=== PATIENT | female | born 1970 | race Caucasian/White ===

== ENCOUNTER 2016-06-19 11:41 | Emergency (ER) | payer OTHER ==
[~2016-06-19 11:41] MED LIST: AVONEX IM; CATAFLAM50 MG PO; EQL FISH OIL 1,1 CA1 PO; MULTIVITAMIN1 TAB PO; PERCOCET 5/3251 TAB PO; TYSABRI300 MG/15 IV
[2016-06-19] MEDS ORDERED: PLEGRIDY125 MCG/0. SC (12:02)
[2016-06-19] MEDS ORDERED: VITAMIN D31000 UNI3 PO (12:02)
[2016-06-19 12:19] LABS: BASO % 0.3 % (0-2); EOS % 2.8 % (0-7); EOSINOPHIL ABSOLUTE COUNT 0.3 tho/cmm (0.0-0.7); HCT-HEMATOCRIT 39.2 % (34.0-49.0); HGB-HEMOGLOBIN 12.7 gm/dl (12.0-15.5); LYMPH % 19.6 % (20-45); LYMPH ABSOLUTE COUNT 1.8 tho/cmm (0.8-4.5); MCH (MEAN CORPUSCULAR HGB) 28.2 pg (28.0-32.0); MCHC MEAN CORPUSCULAR HGB CONC 32.4 % (32.0-36.0); MCV (MEAN CELL VOLUME) 87.1 fl (82.0-96.0); MEAN PLATELET VOLUME 9.5 cmc (9.4-12.4); MONO % 9.6 % (0-12); MONOCYTE ABSOLUTE COUNT 0.9 tho/cmm (0.0-1.2); NEUTROPHIL ABSOLUTE COUNT 6.3 tho/cmm (1.6-8.0); NEUTROPHIL-AUTOMATED 6.3 tho/cmm (1.6-8.0); NEUTROPHILS % 67.7 % (40-80); PLATELET COUNT 335 tho/cmm (150-450); RED CELL DISTRIBUTION WIDTH 13.8 % (12.4-16.4); WHITE BLOOD COUNT 9.2 tho/cmm (4.0-10.0)
[2016-06-19 12:38] LABS: PREGNANCY-SERUM NEGATIVE (NEGATIVE)
[2016-06-19 12:46] LABS: ALB/GLOB RATIO 0.9 (0.8-2.0); ALBUMIN 3.6 g/dl (3.5-5.0); ALKALINE PHOSPHATASE 65 U/L (33-138); ALT/SGPT 32 U/L (12-78); ANION GAP 14 mmol/L (0-20); AST/SGOT 17 U/L (10-40); BILIRUBIN,TOTAL 0.3 mg/dl (0-1.5); BLOOD UREA NITROGEN 18 mg/dl (6-24); CALCIUM 9.2 mg/dl (8.5-10.5); CARBON DIOXIDE-VENOUS 25 mmol/L (22-32); CHLORIDE 106 mmol/l (96-110); CREATININE 0.93 mg/dl (0.50-1.10); GLUCOSE 88 mg/dL (70-110); LIPASE 185 U/L (73-393); POTASSIUM 4.1 mmol/L (3.7-5.1); SODIUM 141 mmol/L (135-145); eGFR VALUE FOR BLACK 86 mL/Min
[2016-06-19] MEDS ORDERED: FLAGYL500 M1 PO (13:42)
[2016-06-19] MEDS ORDERED: CIPRO500 M2 PO (13:42)
[2016-06-19] MEDS ORDERED: NORCO 5-325 TA1 EACH PO (13:42)
[2016-06-19] MEDS ORDERED: ZOFRAN4 M2 PO (13:42)
== END 2016-06-19 13:51 ==
LOC: EDMED 11:41
PROVIDERS: Emergency Medicine
DX: K57.32 Diverticulitis of large intestine without perforation or abscess without bleeding (principal); Z87.442 Personal history of urinary calculi; Z90.89 Acquired absence of other organs; Z98.890 Other specified postprocedural states
CPT/HCPCS: J2270; J2405; J7030; Q9967